=== PATIENT | male | born 1980 | race Caucasian/White ===

== ENCOUNTER 2022-08-03 15:35 | Emergency (ER) | payer BC, OTHER ==
--- NOTE | 2022-08-03 15:41 | ED Upper Extremity ---
General Chief Complaint: Laceration Stated Complaint: RT HAND LAC History of Present Illness Date Seen by Provider: Aug 03, 2022 Time Seen by Provider: 15:43 Initial Comments 42-year-old male is here with complaints of right hand laceration with a table saw today prior to coming to ER. Patient is able to move his fingers and wrist and denies any sensory loss. No active bleeding seen. Allergies and Home Medications Allergies Coded Allergies: No Known Drug Allergies (Unverified , 08/03/22) Patient Home Medication List Home Medication List Reviewed: Yes Review of Systems Constitutional: no symptoms reported EENTM: no symptoms reported Respiratory: no symptoms reported Cardiovascular: no symptoms reported Gastrointestinal: no symptoms reported Genitourinary: no symptoms reported Musculoskeletal: muscle pain Skin: no symptoms reported Psychiatric/Neurological: No Symptoms Reported Physical Exam Vital Signs Vital Signs - First Documented 08/03/22 15:44 Temp 35.8 Pulse 89 Resp 16 B/P (MAP) 135/95 (108) Pulse Ox 99 O2 Delivery Room Air Capillary Refill : Height, Weight, BMI Height: '" Weight: lbs. oz. kg; BMI Method: General Appearance: WD/WN, no apparent distress HEENT: PERRL/EOMI Neck: full range of motion Shoulder: normal inspection, non-tender, no evidence of injury, normal ROM Elbow/Forearm: normal inspection, non-tender, no evidence of injury, normal ROM, Right Wrist: Yes normal inspection, Yes non-tender, Yes no evidence of injury, Yes normal ROM Hand: normal ROM, Right, laceration (5x3cm laceration in between thumb abd index finger, no apparent tendon injury. Hand function examined with and without local anesthetic. NV bundle intact. No foreign body or active bleeding.) Neurologic/Psychiatric: no motor/sensory deficits, alert, normal mood/affect, oriented x 3 Skin: normal color Progress/Results/Core Measures Results/Orders My Orders Orders - PAULA PAREDES MD Hand 3 View Right (08/03/22 15:44) Dipht,Pertuss(Acell),Tet Adult (Boostrix (08/03/22 15:45) Lidocaine/Epi 2% 1:100,000 (Xylocaine/Ep (08/03/22 17:00) Lidocaine/Epi Mpf 2% 1:200,000 (Xylocain (08/03/22 16:49) Medications Given in ED Current Medications Medications Dose Ordered Sig/Ortiz Route Start Time Stop Time Status Last Admin Dose Admin Diphtheria/ Tetanus/Acell Pertussis 0.5 ml ONCE ONCE IM 08/03/22 15:45 08/03/22 15:46 DC 08/03/22 16:58 0.5 ML Lidocaine/ Epinephrine 20 ml ONCE ONCE INJ 08/03/22 17:00 08/03/22 17:01 DC 08/03/22 17:02 20 ML Vital Signs/I&O 08/03/22 15:44 Temp 35.8 Pulse 89 Resp 16 B/P (MAP) 135/95 (108) Pulse Ox 99 O2 Delivery Room Air Progress Progress Note : Progress Note 1. RIGHT HAND LACERATION: TENDON INJURY - XR RIGHT HAND: no fractures - Tdap in ER -Wound was irrigated profusely with normal saline and sterile water, no foreign body seen. Local anesthetic with 50% of 1% lidocaine and 50% of 1% lidocaine with epi mixed and a 10 mL syringe, local block with 10 mL of this mixture given. I began suturing with absorbable sutures, placed 2 absorbable sutures in the deeper layer and noticed a severed tendon which looks like the extensor pollicis longus tendon. On more careful and deeper exam, the patient is able to extend the thumb but has some difficulty doing it and feels some resistance in that movement. Positive suturing and called hand surgery consult at [facility]. I spoke with Dr. Hernandez, who advised to close up with a laceration with superficial sutures, given antibiotics, and referred to clinic on Friday, without need for urgent transfer at this time. - Ethilon 4.0 suture material used and 11 interrupted sutures placed with good apposition. Bacitracin ointment applied and hand was bandaged. - Augmentin bid for 7 days with first tab given in ER - Ibuprofen for mild to moderate pain and Percocet for severe pain. Do not drive after taking Percocet. - Follow up and call hand surgery clinic, Dr Moseley's clinic for appointment on Friday. pt agreed to plan. - If symptoms worsen, return to ER Diagnostic Imaging Diagonstic Imaging: Xray Plain Films/CT/US/NM/MRI: hand Comments [facility] [place], [place] NAME: AMBER MOSQUEDA REC#: [id number] PT STATUS: REG ER : 1980 PHYSICIAN: PAULA PAREDES MD ADMIT DATE: 08/03/22/ER FS Draft Date of Exam:08/03/22 HAND 3 VIEW RIGHT EXAMINATION: Right hand radiographs. EXAM DATE: 08/03/2022 3:54 PM. COMPARISON: None available. HISTORY: Hand laceration. TECHNIQUE: 3 views. FINDINGS: There is no acute fracture, dislocation, or destructive osseous process. Mild cortical thickening along the 2nd metacarpal. The joint spaces are normal. The soft tissues are normal without suspicious radiopaque foreign body. IMPRESSION: No acute osseous abnormality or suspicious radiopaque foreign body. Dictated on workstation # [id number] Dict: 08/03/22 1604 Trans: 08/03/22 1611 [facility] [id number] Interpreted by: KERRI KERR DO Electronically signed by: Departure Impression Primary Impression: Laceration of right hand Qualified Codes: S61.411A - Laceration without foreign body of right hand, initial encounter Additional Impression: Injury of tendon of finger Disposition: HOME, SELF-CARE Condition: Stable Departure-Patient Inst. Referrals: David Starks MD Patient Instructions: Laceration Repair With Stitches (DC), Laceration Repair With Stitches ED Add. Discharge Instructions: - Augmentin bid for 7 days with first tab given in ER - Ibuprofen for mild to moderate pain and Percocet for severe pain. Do not drive after taking Percocet. - Follow up and call hand surgery clinic, Dr Raudel Hernandez's clinic for appointment on Friday. pt agreed to plan. CLINIC , ADDRESS: [address] [place] [address] - If symptoms worsen, return to ER All discharge instructions reviewed with patient and/or family. Voiced understanding. Scripts Amoxicillin/Potassium Clav (Amox Tr-K Clv 875-125 mg Tab) 875 Mg-125 Mg Tablet 1 EACH PO BID for 7 Days, #14 TAB Prov: PAULA PAREDES MD 08/03/22 PAULA PAREDES MD Aug 03, 2022 15:41
[2022-08-03] MEDS ORDERED: TETANUS,DIPTH,PERTUSS P/F (BOOSTRIX) 0.5 ML VIAL IM ONE (15:45)
--- NOTE | 2022-08-03 16:12 | Diagnostic Imaging Report ---
EXAMINATION: Right hand radiographs. EXAM DATE: 08/03/2022 3:54 PM. COMPARISON: None available. HISTORY: Hand laceration. TECHNIQUE: 3 views. FINDINGS: There is no acute fracture, dislocation, or destructive osseous process. Mild cortical thickening along the 2nd metacarpal. The joint spaces are normal. The soft tissues are normal without suspicious radiopaque foreign body. IMPRESSION: No acute osseous abnormality or suspicious radiopaque foreign body. Dictated by: Dictated on workstation # [id number]
[2022-08-03] MEDS ORDERED: LIDOCAINE/EPI 2% 1:200,00 (XYLOCAINE) 20 ML VIAL ONE (16:49)
[2022-08-03] MEDS ORDERED: LIDOCAINE/EPI 2% 1:100,00 (XYLOCAINE) 20 ML VIAL INJ ONE (17:00)
[2022-08-03] MEDS ORDERED: AUGMENTIN 875 MG TAB (AMOXICILLIN/CLAVULANATE) PO STA (18:03)
[2022-08-03] MEDS ORDERED: BACITRACIN OINTMENT 28 GM TUBE TOP STA (18:03)
[2022-08-03] MEDS ORDERED: AUGMENTIN 875 MG TAB (AMOXICILLIN/CLAVULANATE) ONE (18:11)
[2022-08-03] MEDS ORDERED: AMOX1TAB12 PO (18:14)
[2022-08-03] MEDS ORDERED: OXYC-199 PO (18:16)
[2022-08-03 18:21] VITALS: BP 135/95
== END 2022-08-03 18:30 | disposition home or self-care (01) ==
LOC: EDUNIT# 15:35 → ER FS 15:37
DX: S61.411A Laceration without foreign body of right hand, initial encounter (principal); Z23 Encounter for immunization; W31.2XXA Contact with powered woodworking and forming machines, initial encounter
CPT/HCPCS: 12002; 73130; 90715